=== PATIENT | female | born 1975 | race Caucasian/White ===

== ENCOUNTER 2021-06-11 16:49 | Emergency (ER) | payer SELFPAY ==
[~2021-06-11] VITALS: Ht 157.5 cm; Wt 90.7 kg
[2021-06-11 17:14] VITALS: BP 109/71
[2021-06-11] MEDS ORDERED: CLIN60LO2 TP (18:09)
== END 2021-06-11 18:17 | disposition home or self-care (01) ==
LOC: ER 16:51
DX: L73.2 Hidradenitis suppurativa (principal)